=== PATIENT | female | born 1975 | race Caucasian/White ===

== ENCOUNTER → 2019-05-25 | Outpatient (REF) | payer OTHER | LOC: M SFHCLERA 17:12 | PROVIDERS: ATTEND Physician Assistant | DX: N39.0 Urinary tract infection, site not specified (principal) | CPT/HCPCS: 81002; 87086; G0463 ==

== ENCOUNTER → 2019-11-08 | Outpatient (REF) | payer OTHER ==
[2019-11-08 17:27] LABS: FREE T4 1.07 NG/DL (0.76-1.46); MAGNESIUM LEVEL 2.2 MG/DL (1.8-2.4); POTASSIUM SERUM 4.5 MEQ/L (3.5-5.1); THYROID STIMULATING HORMONE 1.57 uIU/ML (0.358-3.740); TOTAL 25(OH) VITAMIN D 25.9 NG/ML (30.0-100.0)
== END ==
LOC: M SFHCLERA 11:41
PROVIDERS: ATTEND Nurse Practitioner Family
DX: M79.10 Myalgia, unspecified site (principal)
CPT/HCPCS: 82306; 82607; 83735; 84132; 84439; 84443; 93005; G0463

== ENCOUNTER → 2020-01-17 | Outpatient (REF) | payer OTHER ==
[2020-01-17 15:13] LABS: CHLAMYDIA DNA AMPLIFICATION NEGATIVE (NEGATIVE); GC DNA AMPLIFICATION NEGATIVE (NEGATIVE)
== END ==
LOC: M SFHCLERA 11:28
PROVIDERS: ATTEND Nurse Practitioner Family
DX: R10.30 Lower abdominal pain, unspecified (principal)
CPT/HCPCS: 81002; 81025; 87086; 87661; G0463

== ENCOUNTER → 2020-01-18 | Outpatient (REF) | payer OTHER | LOC: M SFHCWAGY 14:00 | PROVIDERS: ATTEND Advanced Practice Midwife | DX: N93.9 Abnormal uterine and vaginal bleeding, unspecified (principal) ==

== ENCOUNTER → 2020-02-09 | Outpatient (CLI) | payer OTHER ==
--- NOTE | 2020-02-09 14:50 | REPMRS ---
Patient History The patient states she had a clinical breast exam in December 2019. Family history of colorectal cancer at age 48 in maternal grandmother, colorectal cancer at age 40 in maternal uncle. Digital Woman Screen Mammo: February 09, 2020 - Exam #: [id number] Bilateral CC and MLO view(s) were taken. Technologist: Rachel Woodard, Technologist No prior studies available for comparison. FINDINGS: There are scattered fibroglandular densities. There is no evidence of dominant mass, architectural distortion, or grouped microcalcification typical of malignancy. 3-D tomosynthesis shows no additional findings. Assessment: BI-RADS/ACR category 1 mammogram. Negative Mammogram. Recommendation Routine screening mammogram of both breasts in 1 year (for women over age 40). This patient's Lifetime Breast Cancer RIsk is estimated at 9.2 %. This mammogram was interpreted with the aid of an FDA-approved computer-aided dectection system. Electronically Signed By: Oliver Olea MD 02/09/20 [id number]
== END ==
LOC: M WHC 14:00
PROVIDERS: ATTEND Advanced Practice Midwife
DX: Z12.31 Encounter for screening mammogram for malignant neoplasm of breast (principal)

== ENCOUNTER → 2025-03-30 | Outpatient (CLI) | payer BC ==
[2025-03-30 10:14] LABS: ALBUMIN 3.6 G/DL (3.2-5.2); BILIRUBIN,TOTAL 0.6 MG/DL (0.3-1.2); CHOLESTEROL RISK RATIO 3.05 (<5); CREATININE FOR GFR 0.84 MG/DL (0.55-1.30); GLOMERULAR FILTRATION RATE 84.1 (>51); HDL CHOLESTEROL 61.2 MG/DL (>40); NON-HDL-C 125.8 MG/DL; POTASSIUM SERUM 4.2 MMOL/L (3.5-5.1); TOTAL PROTEIN 6.6 G/DL (5.7-8.2)
[2025-03-30 10:21] LABS: HEMATOCRIT 42.7 % (36.0-47.0); HEMOGLOBIN 13.4 g/dl (12.0-15.5); MEAN CORPUSCULAR HEMOGLOBIN 27.3 pg (27.0-33.0); MEAN CORPUSCULAR HGB CONC 31.4 g/dl (32.0-36.5); MEAN CORPUSCULAR VOLUME 87.1 fl (80.0-96.0); PLATELET COUNT, AUTOMATED 249 10^3/uL (150-450); WHITE BLOOD COUNT 5.8 10^3/uL (4.0-10.0)
[2025-03-30 10:22] LABS: THYROID STIMULATING HORMONE 1.489 uIU/ML (0.55-4.78); TOTAL 25(OH) VITAMIN D 38.3 NG/ML (20.0-100.0)
[2025-03-30 10:31] LABS: HEMOGLOBIN A1c 5.1 % (4.0-6.0)
== END ==
LOC: M PLALAB 07:23
DX: Z00.00 Encounter for general adult medical examination without abnormal findings (principal)

== ENCOUNTER → 2025-04-13 | Outpatient (CLI) | payer BC | LOC: M CARPUL 08:01 | PROVIDERS: ATTEND Registered Nurse | DX: R94.31 Abnormal electrocardiogram [ECG] [EKG] (principal) ==